=== PATIENT | female | born 1985 | race Caucasian/White ===

== ENCOUNTER 2019-04-18 16:04 | Emergency (ER) | payer SELFPAY ==
[2019-04-18 16:19] VITALS: BP 148/105
[2019-04-18] MEDS ORDERED: Aspirin 81 mg CHEW TAB* 81 MG TAB.CHEW PO ONE (16:38)
--- NOTE | 2019-04-18 16:45 | UC ---
Cardiac HPI - HPI Summary HPI Summary: 34 yo female had a two hour episode of sharp /stabbing CP 2 weeks ago was associated with diaphoresis and shortness of breath has had a number of briefer and less severe episodes since then one occurred with exertion She has had no chest pain today but her left arm has been numb all day no arm pain no sob, nausea or vomiting - History of Current Complaint Chief Complaint: UCChestPain Stated Complaint: CHEST PAIN Time Seen by Provider: 04/18/19 16:20 Hx Obtained From: Patient Hx Last Menstrual Period: [id number] Onset/Duration: Sudden Onset, Lasting Hours Timing: Constant Initial Severity: Moderate Current Severity: None Pain Intensity: 0 Chest Pain Location: Mid Sternal - left Character: Sharp/Stabbing Aggravating Factor(s): Nothing Alleviating Factor(s): Spontaneous Resolution Associated Signs & Symptoms: Positive: Chest Pain, Anxiety, Numbness, SOB, Diaphoresis - Allergy/Home Medications Allergies/Adverse Reactions: Allergies Allergy/AdvReac Type Severity Reaction Status Date / Time No Known Allergies Allergy Verified 04/18/19 16:13 Home Medications: Home Medications Ibuprofen TAB* [Motrin TAB* 800 MG] 800 mg PO Q6H PRN 04/18/19 [History Confirmed 04/18/19] NK [No Home Medications Reported] 04/18/19 [History Confirmed 04/18/19] PMH/Surg Hx/FS Hx/Imm Hx Previously Healthy: Yes - Surgical History Surgical History: Yes Surgery Procedure, Year, and Place: wisdom teeth - Family History Known Family History: Positive: Cardiac Disease, Hypertension, Diabetes - Social History Alcohol Use: Weekly Substance Use Type: None Smoking Status (MU): Heavy Every Day Tobacco Smoker Review of Systems All Other Systems Reviewed And Are Negative: Yes Constitutional: Positive: Negative Skin: Positive: Negative Eyes: Positive: Negative ENT: Positive: Negative Respiratory: Positive: Negative Cardiovascular: Positive: Negative, Other - no CP today Gastrointestinal: Positive: Negative Genitourinary: Positive: Negative Motor: Positive: Negative Neurovascular: Positive: Other - left arm numbness Musculoskeletal: Positive: Negative Neurological: Positive: Negative Psychological: Positive: Negative Physical Exam Triage Information Reviewed: Yes Appearance: Well-Appearing, No Pain Distress, Well-Nourished Vital Signs: Initial Vital Signs Temp 99.3 F 04/18/19 16:09 Pulse 109 04/18/19 16:09 Resp 20 04/18/19 16:09 BP 167/95 04/18/19 16:09 Pulse Ox 99 04/18/19 16:09 Vital Signs Reviewed: Yes Eyes: Positive: Conjunctiva Clear ENT: Positive: Normal ENT inspection, Uvula midline. Negative: Nasal congestion , Nasal drainage, Tonsillar swelling, Tonsillar exudate, Trismus, Muffled voice , Hoarse voice Dental Exam: Normal Neck: Positive: Supple, Nontender Respiratory: Positive: Lungs clear, Normal breath sounds, No respiratory distress, No accessory muscle use Cardiovascular: Positive: RRR, No Murmur Bowel Sounds: Positive: Present Musculoskeletal: Positive: ROM Intact, No Edema Neurological: Positive: Alert Psychological Exam: Normal Skin Exam: Normal Diagnostics - EKG Cardiac Rate: Tachycardia Cardiac Rhythm: Sinus: Normal Ectopy: None ST Segment: Normal - Clinical Impression Provider Diagnosis: Chest pain of uncertain etiology, Left upper extremity numbness Discharge - Sign-Out/Discharge Documenting (check all that apply): Patient Departure All imaging exams completed and their final reports reviewed: No Studies - Discharge Plan Condition: Stable Disposition: HOME-RECOMMEND TO ED Referrals: No Primary Care Phys,NOPCP [Primary Care Provider] - Additional Instructions: I suggest you go directly to the ER for evaluation of your chest pain and left arm numbness you were given four baby asa here - Billing Disposition and Condition Condition: STABLE Disposition: Home-Recommend to ED
== END 2019-04-18 16:52 | disposition home health service (06) ==
LOC: UCEAST 16:04
DX: R07.9 Chest pain, unspecified (principal); R20.0 Anesthesia of skin; F17.210 Nicotine dependence, cigarettes, uncomplicated
CPT/HCPCS: 93005; 99202; A9270-GY; G0463

== ENCOUNTER 2019-04-18 17:31 | Emergency (ER) | payer SELFPAY ==
[2019-04-18 18:32] LABS: ABS Eosinophils 0.1 10^3/ul (0-0.6); ABS Lymphocytes 2.1 10^3/ul (1.0-4.8); ABS Monocytes 0.5 10^3/ul (0-0.8); ABS Neutrophils 6.8 10^3/ul (1.5-7.7); Eosinophil % 0.6 %; Hematocrit 45 % (35-47); Hemoglobin 15.4 g/dL (12.0-16.0); Lymphocyte % 22.1 %; Mean Corpuscular HGB Conc 34 g/dL (31-36); Mean Corpuscular Hemoglobin 32 pg (27-31); Mean Corpuscular Volume 93 fL (80-97); Mean Platelet Volume 9.5 fL (7.4-10.4); Platelet Count 237 10^3/uL (150-450); Red Blood Count 4.83 10^6 /uL (3.70-4.87); Red Cell Distribution Width 14 % (10-15); White Blood Count 9.5 10^3/uL (3.5-10.8)
[2019-04-18 18:38] LABS: INR 0.97 (0.82-1.09)
[2019-04-18 18:45] LABS: Albumin/Globulin Ratio 1.9 (1-3); BUN/Creatinine Ratio 13.7 (8-20); Calcium 9.6 mg/dL (8.6-10.3); EGFR African American 111.1 (>60); EGFR Non-African American 91.8 (>60); Globulin 2.7 g/dL (2-4); Potassium 3.9 mmol/L (3.5-5.0); Total Bilirubin 0.5 mg/dL (0.2-1.0); Total Protein 7.7 g/dL (6.4-8.9)
[2019-04-18] MEDS ORDERED: cloNIDine TAB* 0.1 MG PO ONE (19:31)
[2019-04-18] MEDS ORDERED: ALPRAZolam TAB* 0.5 MG PO ONE (19:31)
--- NOTE | 2019-04-18 19:35 | ED ---
HPI Chest Pain - HPI Summary HPI Summary: This patient is a 34 year old F presenting to [facility] accompanied by brother with a chief complaint of intermittent stabbing chest pain, each episode lasting a couple seconds since approx. 2 weeks ago. Pt did not go to the hospital at the time, because she was with family and did not want to scare them. Pt reports her left arm is numb. Pt has a Hx of anxiety and panic attacks, and is not taking any medications. - History of Current Complaint Chief Complaint: EDChestPainROMI Time Seen by Provider: 04/18/19 19:15 Hx Obtained From: Patient Hx Last Menstrual Period: [id number] Onset/Duration: Started Hours Ago, Resolved Timing: Intermittent, Lasting Seconds Initial Severity: Moderate Current Severity: Mild Pain Intensity: 1 Pain Scale Used: 0-10 Numeric Character: Sharp/Stabbing Aggravating Factor(s): Nothing Alleviating Factor(s): Nothing Associated Signs and Symptoms: Positive: Numbness - left arm - Allergy/Home Medications Allergies/Adverse Reactions: Allergies Allergy/AdvReac Type Severity Reaction Status Date / Time No Known Allergies Allergy Verified 04/18/19 16:13 PMH/Surg Hx/FS Hx/Imm Hx Sensory History: Denies: Hx Legally Blind EENT History: Denies: Hx Deafness - Surgical History Surgery Procedure, Year, and Place: wisdom teeth - Immunization History Immunizations Up to Date: Yes Infectious Disease History: No Infectious Disease History: Denies: Traveled Outside the [place] in Last 30 Days - Family History Known Family History: Positive: Cardiac Disease, Hypertension, Diabetes - Social History Lives: With Family Alcohol Use: Weekly Substance Use Type: Reports: None Smoking Status (MU): Heavy Every Day Tobacco Smoker Review of Systems Positive: Chest Pain Positive: Other - pos - Numbness in arm All Other Systems Reviewed And Are Negative: Yes Physical Exam - Summary Physical Exam Summary: VITAL SIGNS: Reviewed. GENERAL: Patient is a well-developed and nourished female who is lying comfortable in the stretcher. Patient is not in any acute respiratory distress. Pt is Anxious, some what impulsive HEAD AND FACE: No signs of trauma. No ecchymosis, hematomas or skull depressions. No sinus tenderness. EYES: PERRLA, EOMI x 2, No injected conjunctiva, no nystagmus. EARS: Hearing grossly intact. Ear canals and tympanic membranes are within normal limits. MOUTH: Oropharynx within normal limits. NECK: Supple, trachea is midline, no adenopathy, no JVD, no carotid bruit, no c- spine tenderness, neck with full ROM CHEST: Symmetric, no tenderness at palpation LUNGS: Clear to auscultation bilaterally. No wheezing or crackles. CVS: Regular rate and rhythm, S1 and S2 present, no murmurs or gallops appreciated. ABDOMEN: Soft, non-tender. No signs of distention. No rebound no guarding, and no masses palpated. Bowel sounds are normal. EXTREMITIES: FROM in all major joints, no edema, no cyanosis or clubbing. NEURO: Alert and oriented x 3. No acute neurological deficits. Speech is normal and follows commands. SKIN: Dry and warm Triage Information Reviewed: Yes Vital Signs On Initial Exam: Initial Vitals Temp Pulse Resp BP Pulse Ox 99.2 F 92 18 163/109 98 04/18/19 17:35 04/18/19 17:35 04/18/19 17:35 04/18/19 17:35 04/18/19 17:35 Vital Signs Reviewed: Yes Diagnostics - Vital Signs Vital Signs Temp Pulse Resp BP Pulse Ox 04/18/19 17:35 99.2 F 92 18 163/109 98 - Laboratory Lab Results: Lab Results 04/18/19 04/18/19 04/18/19 Range/Units 18:04 18:04 18:04 WBC 9.5 (3.5-10.8) 10^3/uL RBC 4.83 (3.70-4.87) 10^6 /uL Hgb 15.4 (12.0-16.0) g/dL Hct 45 (35-47) % MCV 93 (80-97) fL MCH 32 H (27-31) pg MCHC 34 (31-36) g/dL RDW 14 (10-15) % Plt Count 237 (150-450) 10^3/uL MPV 9.5 (7.4-10.4) fL Neut % (Auto) 72.0 % Lymph % (Auto) 22.1 % Glasscock % (Auto) 4.9 % Eos % (Auto) 0.6 % Baso % (Auto) 0.4 % Absolute Neuts (auto) 6.8 (1.5-7.7) 10^3/ul Absolute Lymphs (auto) 2.1 (1.0-4.8) 10^3/ul Absolute Monos (auto) 0.5 (0-0.8) 10^3/ul Absolute Eos (auto) 0.1 (0-0.6) 10^3/ul Absolute Basos (auto) 0.0 (0-0.2) 10^3/ul Absolute Nucleated RBC 0.0 10^3/ul Nucleated RBC % 0.0 INR (Anticoag Therapy) 0.97 (0.82-1.09) Sodium 134 L (135-145) mmol/L Potassium 3.9 (3.5-5.0) mmol/L Chloride 103 (101-111) mmol/L Carbon Dioxide 23 (22-32) mmol/L Anion Gap 8 (2-11) mmol/L BUN 10 (6-24) mg/dL Creatinine 0.73 (0.51-0.95) mg/dL Est GFR ( Amer) 111.1 (>60) Est GFR (Non-Af Amer) 91.8 (>60) BUN/Creatinine Ratio 13.7 (8-20) Glucose 87 (70-100) mg/dL Calcium 9.6 (8.6-10.3) mg/dL Total Bilirubin 0.50 (0.2-1.0) mg/dL AST 24 (13-39) U/L ALT 35 (7-52) U/L Alkaline Phosphatase 59 (34-104) U/L Troponin I 0.00 (<0.04) ng/mL Total Protein 7.7 (6.4-8.9) g/dL Albumin 5.0 (3.2-5.2) g/dL Globulin 2.7 (2-4) g/dL Albumin/Globulin Ratio 1.9 (1-3) Result Diagrams: 04/18/19 18:04 04/18/19 18:04 Lab Statement: Any lab studies that have been ordered have been reviewed, and results considered in the medical decision making process. - EKG 4579 Cardiac Rate: NL - 92 bpm EKG Rhythm: Sinus Rhythm Summary of EKG Findings: An EKG reveals normal sinus rhythm rate 92, no ischemic changes Chest Pain Course/Dx - Course Course Of Treatment: This patient is a 34 year old F [facility] by with a chief complaint of intermittent stabbing chest pain, each episode lasting a couple seconds since approx. 2 weeks ago. Pt reports her left arm is numb. Pt has a Hx of anxiety and panic attacks, and is not taking any medications. Pt has a normal physical exam except she is Anxious, somewhat impulsive. Blood work obtained. MCH is 32, Sodium is 134, troponin is 0.00. An EKG at reveals rate 92 sinus rhythm, no ischemic changes. In the ED course the patient was given Xanax 0.5 mg PO, Catapres 0.1 mg PO. Patient is agreeable to discharge and was told to follow up with Dr. Cedeno, cardiology, within 1-2 days. Patient was also told to perform a stress test at an outpatient clinic and to return to the ED for any new or worsening symptoms. - Diagnoses Provider Diagnoses: Atypical chest pain, HTN (hypertension) Discharge - Sign-Out/Discharge Documenting (check all that apply): Patient Departure - discharge Patient Received Moderate/Deep Sedation with Procedure: No - Discharge Plan Condition: Stable Disposition: HOME Prescriptions: Lisinopril TAB* [Prinivil TAB 5 MG*] 5 mg PO DAILY #30 tab Patient Education Materials: Chest Pain (ED), Chronic Hypertension (ED) Referrals: No Primary Care Phys,NOPCP [Primary Care Provider] - Clem Cedeno MD [Medical Doctor] - 1 Day Additional Instructions: Follow up with Dr. Cedeno, cardiology, within 1-2 days. Perform a stress test at an outpatient clinic. Return to the ED for any new or worsening symptoms. - Attestation Statements Document Initiated by Scribe: Yes Documenting Scribe: Milena Corona Provider For Whom Blankae is Documenting (Include Credential): Dr. Tracie Sanford MD Scribe Attestation: Milena Lai, scribed for Dr. Tracie Sanford MD on 04/18/19 at 2225. Status of Scribe Document: Ready
[2019-04-18 22:36] VITALS: BP 119/84
== END 2019-04-18 22:36 | disposition home or self-care (01) ==
LOC: ED 17:31
DX: R07.89 Other chest pain (principal); I10 Essential (primary) hypertension; R20.0 Anesthesia of skin; F41.9 Anxiety disorder, unspecified; Z82.49 Family history of ischemic heart disease and other diseases of the circulatory system; Z83.3 Family history of diabetes mellitus; F17.200 Nicotine dependence, unspecified, uncomplicated
CPT/HCPCS: 36415; 80053; 84484; 85025; 85610; 99284; A9270-GY